=== PATIENT | male | born 1985 | race Caucasian/White ===

== ENCOUNTER 2021-11-13 18:38 | Emergency (ER) | payer OTHER, SELFPAY ==
[2021-11-13 18:51] VITALS: BP 126/70; PULSE 86; RESP 18; TEMP 35.6; O2SAT 100
--- NOTE | 2021-11-13 19:22 | ED.GENADULT ---
HPI - General Adult General Chief complaint: Unspecified Stated complaint: hands swelling and get numb Time Seen by Provider: 11/13/21 19:28 Source: patient Mode of arrival: ambulatory Limitations: no limitations History of Present Illness HPI narrative: 35-year-old male presents with concern for 2-day history of intermittent hand pain, swelling, stiffness, numbness. He denies injury, trauma. Denies warmth, general malaise, fever, bodies, chills, sweats. 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 He denies any history of similar problems. Denies neck pain or back pain. He reports he has been using ibuprofen and naproxen with minimal relief. Reports he is tried hot and cold water without relief. MD complaint: Hand swelling Related Data Allergies Allergy/AdvReac Type Severity Reaction Status Date / Time acetaminophen Allergy Hives Verified 11/13/21 19:12 [From Darvocet-N 100] ketorolac [From Toradol] Allergy Hives Verified 11/13/21 19:12 morphine Allergy Swelling Verified 11/13/21 19:13 of Lip/Tongue/Throat propoxyphene Allergy Hives Verified 11/13/21 19:12 [From Darvocet-N 100] Review of Systems Review of Systems: CONSTITUTIONAL: Denies malaise, chills, sweats, or fever. CARDIOVASCULAR: Denies chest pain, palpitations, or edema. SKIN: Denies rash or itching. MUSCULOSKELETAL: Reports bilateral hand pain, swelling, numbness, stiffness, numbness NEUROLOGIC: Denies weakness All systems reviewed & are unremarkable except as noted in HPI and below PMFSH Comments At time of signature, agree with nursing past medical, surgical, social and family history. There is no relevant family history pertinent to the presenting complaint Exam Narrative: GENERAL: Well-appearing, well-nourished, and in no acute distress. HEAD: Normocephalic EYES: PERRLA, conjunctivae clear NECK: Supple. CHEST: Speaks in full sentences. No respiratory distress. HEART: Regular rate and rhythm. Normal and equal peripheral pulses. EXTREMITIES: Bilateral hands and digits have normal strength and sensation. 5/5 strength with digit flexion, extension. Range of motion normal. No clubbing, cyanosis, or edema noted. No tenderness. Skin intact. Normal digital cascade with flexion of fingers, median, ulnar and radial nerve intact. Normal sensation of each side of finger. Can perform 'okay' sign, 'cross over finger test of index and middle fingers' and 'thumbs up' sign. No scissoring. Normal thumb opposition. Good capillary refill and radial pulse. Distal capillary refill less than 3 seconds. SKIN: Warn, dry, intact, pink. No rash. No warmth, redness NEURO: Alert and oriented x3. PSYCH: Normal mood and affect Course Course Emergency Course: Inform patient that he needs follow-up with primary care for further evaluation of the symptoms. Patient is aware of diagnosis, understands and agrees to treatment plan. Anticipatory guidance given. Patient agrees to follow-up as directed and is aware of reasons to seek care at the emergency department. Portions of this record may have been created with voice recognition software Level of Care: Express Care Visit Vital Signs Vital signs: Vital Signs Temperature 96.0 F L 11/13/21 18:51 Pulse Rate 86 11/13/21 18:51 Respiratory Rate 18 11/13/21 18:51 Blood Pressure 126/70 11/13/21 18:51 Pulse Oximetry 100 11/13/21 18:51 Temperature 96.0 F L 11/13/21 18:51 Pulse Rate 86 11/13/21 18:51 Respiratory Rate 18 11/13/21 18:51 Blood Pressure 126/70 11/13/21 18:51 Pulse Oximetry 100 11/13/21 18:51 Reviewed. Medical Decision Making MDM Narrative Medical decision making narrative: Exam findings show no acute concerns or changes; patient is non-toxic appearing and is in no distress. Patient is appropriate for outpatient treatment and follow-up. Vital Signs Vital Signs: Vital Signs Temperature 96.0 F L
== END 2021-11-13 19:57 | disposition home or self-care (01) ==
PROVIDERS: Emergency Provider Nurse Practitioner
DX: M79.89 Other specified soft tissue disorders (principal); M79.642 Pain in left hand; M79.641 Pain in right hand; J45.909 Unspecified asthma, uncomplicated
CPT/HCPCS: 99213; G0463